=== PATIENT | female | born 1950 | race Caucasian/White ===

== ENCOUNTER 2023-05-07 15:24 | Emergency (ER) | payer OTHER, SELFPAY ==
[2023-05-07 15:26] VITALS: BP 174/77
[2023-05-07 15:51] LABS: % Basophils 0.7 % (0-2); % Eosinophils 0.9 % (0-6); % Immature Granulocytes 0.2 % (0-0.5); % Lymphocytes 30.8 % (20.5-51.1); % Monocytes 6.4 % (1.7-9.3); Absolute Basophils 0.1 10^3/uL (0-0.2); Absolute Eosinophils 0.1 10^3/uL (0-0.7); Absolute Lymphocytes 2.8 10^3/uL (1.2-3.4); Absolute Monocytes 0.6 10^3/uL (0.1-0.6); Absolute Neutrophils 5.6 10^3/uL (1.4-6.5); Hematocrit 39.2 % (37.0-47.0); Hemoglobin 13.4 g/dL (12.0-16.0); Mean Corp Hgb Conc. 34.2 g/dL (33.0-37.0); Mean Corpuscular Hgb 30.2 pg (27.0-31.0); Mean Corpuscular Volume 88.5 fL (81.0-99.0); Mean Platelet Volume 9.9 fL (7.4-10.4); Nucleated Red Blood Cells % 0 %; Platelet Count 226 10^3/uL (130-400); Red Blood Cell Count 4.43 10^6/uL (4.20-5.40); Red Cell Dist. Width 12.5 % (11.5-14.5); White Blood Cell Count 9.1 10^3/uL (4.8-10.8)
[2023-05-07 16:04] LABS: ALT (SGPT) 18 U/L (0-35); AST (SGOT) 23 U/L (14-36); Albumin 3.9 g/dl (3.5-5.0); Alkaline Phosphatase 91 U/L (38-126); Blood Urea Nitrogen 15 mg/dl (7-17); Calcium 10.4 mg/dl (8.4-10.2); Carbon Dioxide 27 mmol/L (22-30); Chloride 104 mmol/L (98-107); Glucose 82 mg/dl (70-99); Potassium 3.9 mmol/L (3.5-5.1); Sodium 138 mmol/L (135-145); Total Bilirubin 0.5 mg/dl (0.2-1.3); Total Protein 6.3 g/dl (6.3-8.2); eGFR > 60.00
[2023-05-07 16:12] LABS: Troponin I < 0.012 ng/ml
[2023-05-07 17:32] VITALS: BMI 25.9
[2023-05-07 17:35] VITALS: BP 173/56
[2023-05-07 18:00] VITALS: BP 163/61
[2023-05-07 18:55] VITALS: BP 178/66
[2023-05-07 20:00] VITALS: BP 193/71
[2023-05-07 20:01] LABS: Troponin I < 0.012 ng/ml
--- NOTE | 2023-05-07 20:31 | ED.GENMED ---
History of Present Illness
General
Chief Complaint: Heart Rate Problem
Source: patient
Exam Limitations: none
Time Seen by Provider: 05/07/23 18:04
Nursing documentation reviewed up to this point in time: agreed with
Travel History
Have you had any contact with someone who has COVID-19?: No
Do you have any symptoms of coronavirus? Fever > 100 degrees, chills, cough, shortness of breath, sore throat, loss of taste or smell, muscle aches, or headache?: No
History of Present Illness
History of Present Illness:
72-year-old female with past ministry of GERD, hyperlipidemia presenting to the emergency department today with concerns of palpitations started yesterday and it was ongoing this morning. Denies significant chest pain at initial assessment patient
without any significant symptoms at this time no fevers no recent illness no abdominal pain.
Review of Systems
Review of Systems
Allergies reviewed?: Yes
All Other Systems: ROS reviewed and negative except as documented in HPI and ROS
Phy Exam
Physical Exam
Physical Exam:
GENERAL: Alert , in no apparent distress
EYE: pupils equal and reactive
NECK: Supple, no significant adenopathy.
ENT: o/p clr, mmm.
CARDIAC: Regular rate and rhythm .
LUNGS: Clear breath sounds bilaterally, no acute respiratory distress, no wheezes/rales/rhonchi
ABDOMEN: Soft, without focal tenderness, no r/g, no cvat
NEUROLOGICAL: Alert and oriented, no focal neuro deficits
SKIN: Warm and dry, skin intact.
MUSCULOSKELETAL: No edema, well perfused.
PSYCH: Normal and appropriate interaction.
Course
Orders/Labs/Results
Orders:
Orders
05/07/23 15:28
EKG [Electrocardiogram (*1)] Urgent
Reason for Study: Palpitations
05/07/23 15:29
EKG- Treatment ONCE
05/07/23 15:43
Complete Blood Count/With Diff Urgent
Comprehensive Metabolic Panel Urgent
Troponin I Urgent
05/07/23 19:01
EKG [Electrocardiogram (*1)] Urgent
Reason for Study: Chest Pain
EKG- Treatment ONCE
05/07/23 19:02
Chest [CR Chest - 2 Views ] Urgent
Comment:
Reason For Exam: cp
05/07/23 19:23
Troponin I Urgent
Abnormal Lab Results
05/07/23
15:43
Calcium 10.4 H mg/dl
(8.4-10.2)
05/07/23 15:43
05/07/23 15:43
Vital Signs
Initial and Last Documented VS:
Initial Vital Signs
Temp Pulse Resp BP Pulse Ox
98.6 F 67 18 174/77 99
05/07/23 15:26 05/07/23 15:26 05/07/23 15:26 05/07/23 15:26 05/07/23 15:26
Last Documented Vital Signs
Temp Pulse Resp BP Pulse Ox
98.6 F 71 11 178/66 99
05/07/23 15:26 05/07/23 19:53 05/07/23 19:53 05/07/23 18:55 05/07/23 19:53
MDM/Problems Addressed
MDM/Problems Addressed:
72-year-old female presenting to the emergency department today with concerns of intermittent palpitations since yesterday. Upon arrival here blood pressure elevated otherwise vital signs are normal. Labs unremarkable troponin negative. EKG
normal chest x-ray normal. Patient repeated troponin level and EKG at 3 hours also normal. Blood pressure was elevated during ER stay in the 170s over 60s there was blood pressure 160 systolic as well. Concerning the elevated blood pressure was
advised for close follow-up as well as for the palpitations. Advised to see cardiology in the next few days to get reassessed she if she needs blood pressure medications or further assessment. Patient generally very well-appearing throughout ER
stay stable for outpatient management return precautions given.
*Critical Care Note
Total Time (30-74mins, 75-104mins- exclusive of procedures): Not Applicable
ED Attending Note
-
Portions of this chart may have been created with voice recognition software.� Occasional wrong word or��sound alike� substitutions may have occurred due to the inherent limitations of voice recognition software.
Discharge Plan
Departure
Patient Disposition: Home (Routine Discharge)
Date of Disposition: 05/07/23
Time of Disposition: 20:33
Patient with high blood pressure during this ER visit?: Yes
Covid-19: Not Applicable
Discharge Problem:
Heart palpitations, Elevated blood pressure reading
Instructions: Chest Pain CBC Follow Up, BLOOD PRESSURE
Referrals:
Seth White MD [Active] - Follow up in 5-7 days
Activity Restrictions/Additional Instructions:
You came to the emergency department today with concerns of palpitations and chest discomfort. Please follow closely with cardiology. Return to the emergency department for any worsening, new or concerning symptoms.
Interventions
Interventions:
*Risk Screen - Suicide Last Done: 05/07/23 15:26
*General Assessment Last Done: 05/07/23 15:26
*Neglect/Abuse Screening Last Done: 05/07/23 15:26
ED- Fall Risk Assessment Last Done: 05/07/23 17:39
*ED COVID-19 Vaccine History Last Done: 05/07/23 15:26
ED- Cardiac Assessment Last Done: 05/07/23 17:38
ED- Pulmonary Assessment Last Done: 05/07/23 17:38
== END 2023-05-07 21:08 | disposition home or self-care (01) ==
LOC: EMR 15:24
PROVIDERS: Emergency Medicine; Physician Assistant; EMERGENCY PHYSICIAN Student in an Organized Health Care Education/Training Program; FAMILY PHYSICIAN Internal Medicine
DX: R00.2 Palpitations (principal); R03.0 Elevated blood-pressure reading, without diagnosis of hypertension; K21.9 Gastro-esophageal reflux disease without esophagitis; E78.00 Pure hypercholesterolemia, unspecified
CPT/HCPCS: 99283; 71046; 80053; 84484; 85025; 93005

== ENCOUNTER → 2023-05-26 10:21 | Outpatient (REF) | payer OTHER, SELFPAY | LOC: DHCBC MAIN 10:21 | PROVIDERS: ATTENDING PHYSICIAN Internal Medicine Cardiovascular Disease; FAMILY PHYSICIAN Family Medicine | DX: R01.1 Cardiac murmur, unspecified (principal) | CPT/HCPCS: 93306 ==

== ENCOUNTER → 2023-06-02 09:38 | Outpatient (REF) | payer OTHER, SELFPAY | LOC: RCS 09:38 | PROVIDERS: ATTENDING PHYSICIAN Internal Medicine Cardiovascular Disease; FAMILY PHYSICIAN Family Medicine | DX: R00.2 Palpitations (principal) | CPT/HCPCS: 93225; 93226 ==

== ENCOUNTER → 2023-10-27 14:12 | Outpatient (REF) | payer SELFPAY | LOC: HWRAD 14:12 | PROVIDERS: ATTENDING PHYSICIAN Internal Medicine Cardiovascular Disease; FAMILY PHYSICIAN Internal Medicine | DX: E78.2 Mixed hyperlipidemia (principal); I70.0 Atherosclerosis of aorta; I10 Essential (primary) hypertension | CPT/HCPCS: 75571 ==

== ENCOUNTER → 2023-11-10 14:23 | Outpatient (REF) | payer OTHER, SELFPAY | LOC: HWRAD 14:23 | PROVIDERS: ATTENDING PHYSICIAN Family Medicine | DX: M25.562 Pain in left knee (principal) | CPT/HCPCS: 73564 ==

== ENCOUNTER → 2023-11-17 16:25 | Outpatient (REF) | payer OTHER, SELFPAY | LOC: HWRAD 16:25 | PROVIDERS: ATTENDING PHYSICIAN Nurse Practitioner Family | DX: M25.561 Pain in right knee (principal) | CPT/HCPCS: 73564 ==

== ENCOUNTER → 2024-04-22 09:49 | Outpatient (REF) | payer OTHER, SELFPAY | LOC: HWWDC 09:49 | PROVIDERS: ATTENDING PHYSICIAN Family Medicine | DX: Z12.31 Encounter for screening mammogram for malignant neoplasm of breast (principal) | CPT/HCPCS: 77063; 77067 ==

== ENCOUNTER → 2024-05-09 13:36 | Outpatient (REF) | payer OTHER, SELFPAY | LOC: HWRAD 13:36 | PROVIDERS: ATTENDING PHYSICIAN Family Medicine | DX: Z78.0 Asymptomatic menopausal state (principal) | CPT/HCPCS: 77080 ==

== ENCOUNTER 2024-06-17 15:21 | Emergency (ER) | payer OTHER, SELFPAY ==
[2024-06-17 15:33] VITALS: BP 134/82
[2024-06-17 18:18] LABS: % Basophils 0.3 % (0-2); % Eosinophils 0.5 % (0-6); % Immature Granulocytes 0.4 % (0-0.5); % Lymphocytes 16.3 % (20.5-51.1); % Monocytes 3.1 % (1.7-9.3); % Neutrophils 79.4 % (42.2-75.2); Absolute Eosinophils 0.1 10^3/uL (0-0.7); Absolute Lymphocytes 1.6 10^3/uL (1.2-3.4); Absolute Monocytes 0.3 10^3/uL (0.1-0.6); Absolute Neutrophils 7.9 10^3/uL (1.4-6.5); Hematocrit 43.7 % (37.0-47.0); Hemoglobin 14.5 g/dL (12.0-16.0); Mean Corp Hgb Conc. 33.2 g/dL (33.0-37.0); Mean Corpuscular Hgb 30.3 pg (27.0-31.0); Mean Corpuscular Volume 91.2 fL (81.0-99.0); Mean Platelet Volume 9.8 fL (7.4-10.4); Nucleated Red Blood Cells % 0 %; Platelet Count 208 10^3/uL (130-400); Red Blood Cell Count 4.79 10^6/uL (4.20-5.40); Red Cell Dist. Width 12.8 % (11.5-14.5)
[2024-06-17 18:30] LABS: ALT (SGPT) 28 U/L (0-35); AST (SGOT) 29 U/L (14-36); Albumin 4.5 g/dl (3.5-5.0); Alkaline Phosphatase 98 U/L (38-126); Blood Urea Nitrogen 15 mg/dl (7-17); Carbon Dioxide 29 mmol/L (22-30); Chloride 105 mmol/L (98-107); Glucose 109 mg/dl (70-99); Potassium 4.4 mmol/L (3.5-5.1); Sodium 141 mmol/L (135-145); Total Bilirubin 0.6 mg/dl (0.2-1.3); Total Protein 7.2 g/dl (6.3-8.2); eGFR > 60.00
[2024-06-17 18:41] LABS: Troponin I < 0.012 ng/ml
[2024-06-17 19:52] VITALS: BP 176/78
--- NOTE | 2024-06-17 20:03 | ED.GENMED ---
History of Present Illness
General
Chief Complaint: Blood Pressure Problem
Source: patient
Time Seen by Provider: 06/17/24 19:21
History of Present Illness
History of Present Illness:
73-year-old female with past medical history of hypertension, hyperlipidemia and GERD presenting to the ER via EMS after she was at home sitting on the couch looking at her phone when she became acutely vertiginous causing her to feel nauseous and
had 1 episode of nonbloody nonbilious emesis. Patient reports that when EMS got to her, her blood pressure was greater than 200 systolically but does not believe any medications were administered to her. Since she was in the waiting room patient
notes that her symptoms have fully resolved she just notes that she has a fear of getting the vertiginous symptom back. Patient notes there was no associated headache, visual disturbances, focal weakness or numbness, chest pain or shortness of
breath, abdominal pain, back or flank pain or any other concerns. Patient notes that she usually takes 50 mg of metoprolol at nighttime prior to bed, has yet to take the medication today. Patient normally follows with her primary care provider for
her blood pressure, notes that she normally does not usually check her blood pressure at home but states when she is seeing her doctor her blood pressure is usually around 130/80. Patient is without any other concerns at this time.
Past History
Past History
ED Past Medical History: GERD, HTN and Hypercholesterolemia
ED Past Surgical History: Gynecological
Social History
Tobacco: Non-smoker
Alcohol: None
Drug: None
Personal:
Living: alone
Review of Systems
Review of Systems
All Other Systems: ROS reviewed and negative except as documented in HPI and ROS
Phy Exam
Physical Exam
Physical Exam:
GENERAL: Alert , in no apparent distress
HEAD: Normocephalic atraumatic
EYE: pupils equal and reactive, pupils 3 mm bilateral, EOMI, no field cuts
NECK: Supple
ENT: o/p clr, mmm.
CARDIAC: Regular rate and rhythm, no murmur.
LUNGS: Clear breath sounds bilaterally, no acute respiratory distress, no wheezes/rales/rhonchi
NEUROLOGICAL: Alert and oriented, no focal neuro deficits, ambulatory with steady gait, no ataxia, no dysmetria, moves all extremities, no sensory deficit
SKIN: Warm and dry, skin intact.
MUSCULOSKELETAL: No edema, well perfused.
PSYCH: Normal and appropriate interaction.
Scores
Heart Failure Risk
Heart Failure Risk Score: Not Applicable
Heart Score for Chest Pain Patients
STEMI patient?: Not applicable
Withdrawal Assessment of Alcohol
Withdrawal Assessment Completed?: Not applicable
Course
Orders/Labs/Results
Orders:
Orders
06/17/24 15:23
ECG [Electrocardiogram (*1)] Urgent
Reason for Study: Hypertension, Benign
EKG- Treatment ONCE
06/17/24 15:34
CT Head W/o Iv Contrast Urgent
Comment:
Reason For Exam: dizziness
06/17/24 18:07
Comprehensive Metabolic Panel Urgent
06/17/24 18:08
Complete Blood Count/With Diff Urgent
Troponin I Urgent
Abnormal Lab Results
06/17/24 06/17/24
18:07 18:08
Absolute Neuts (auto) 7.9 H 10^3/uL
(1.4-6.5)
Neutrophils % 79.4 H %
(42.2-75.2)
Lymphocytes % 16.3 L %
(20.5-51.1)
Glucose 109 H mg/dl
(70-99)
Calcium 11.0 H mg/dl
(8.4-10.2)
06/17/24 18:08
06/17/24 18:07
Vital Signs
Initial and Last Documented VS:
Initial Vital Signs
Temp Pulse Resp BP Pulse Ox
98.5 F 64 18 134/82 99
06/17/24 15:33 06/17/24 15:33 06/17/24 15:33 06/17/24 15:33 06/17/24 15:33
Last Documented Vital Signs
Temp Pulse Resp BP Pulse Ox
98.5 F 70 18 176/78 98
06/17/24 15:33 06/17/24 19:52 06/17/24 19:52 06/17/24 19:52 06/17/24 19:52
MDM/Problems Addressed
Differential Diagnosis Includes:
BPPV, labyrinthitis, hypertensive urgency/emergency, CVA, cardiac dysrhythmia/arrhythmia
MDM/Problems Addressed:
73-year-old female presenting to the ER for evaluation of acute onset of vertigo earlier this afternoon, symptoms fully resolved by time of my exam. On arrival to the ER patient's blood pressure is now within normal limits around 134/82. She
ambulated with a steady gait, no evidence for ataxia. Labs were initiated on arrival and are reassuring outside of a slightly elevated calcium however do not suspect this to be the cause for patient's symptoms. Prior to discharge patient's repeat
blood pressure noted to be slightly elevated again around 170/70. Based off record review patient had similar presentation to this emergency department a little over 1 year ago with a blood pressure in the same range. Given this I do suspect
patient could have intermittently elevated blood pressure despite being compliant with her metoprolol. I did advise the patient that she check her blood pressure once in the morning and once in the evening and that if her blood pressure is greater
than 150 systolically she should take a second dose of her metoprolol until she follows up with her primary care provider. Patient expressed understanding was comfortable being discharged home.
Chronic conditions affecting care: HTN
Acute Exacerbation and/or Progression of Chronic Illness: HTN
*Radiology
Radiology exam reviewed: radiology read reviewed
*Pulse Oximetry
Patient hypoxic: no
*EKG
Heart Rate: 59
Rate: bradycardiac
Rhythm: sinus
[place]: normal axis
Ischemia: no ischemia
*Critical Care Note
Total Time (30-74mins, 75-104mins- exclusive of procedures): Not Applicable
Data Reviewed
Review of Other/Old Records Reveals: Records
Source: patient and records
Patient Management
Discussion with other providers: PCP
Escalation/DeEscalation of care consider admission/obs:
I notified patient's primary care provider of plan and primary will follow-up with the patient next week.
ED Attending Note
-
Portions of this chart may have been created with voice recognition software.� Occasional wrong word or��sound alike� substitutions may have occurred due to the inherent limitations of voice recognition software.
Discharge Plan
Departure
Patient Disposition: Home (Routine Discharge)
Date of Disposition: 06/17/24
Time of Disposition: 19:47
Patient with high blood pressure during this ER visit?: No
Discharge Problem:
Vertigo
Instructions: Vertigo (a type of dizziness)
Prescriptions:
New
meclizine 25 mg tablet
25 mg PO BID PRN (Reason: dizziness) Qty: 10 0RF
Interventions
Interventions:
*Risk Screen - Suicide Last Done: 06/17/24 15:33
*General Assessment Last Done: 06/17/24 15:33
*Neglect/Abuse Screening Last Done: 06/17/24 15:33
*ED- Fall Risk Assessment Last Done: 06/17/24 20:00
*ED COVID-19 Vaccine History Last Done: 06/17/24 15:33
*Nursing Disposition Last Done: 06/17/24 20:17
ED- Cardiac Assessment Last Done: 06/17/24 19:52
ED- Neurological Assessment Last Done: 06/17/24 19:52
ED- Pulmonary Assessment Last Done: 06/17/24 19:52
Discharge Date and Time
Discharge Date/Time: 06/17/24 20:19
Print Language: IRISH
== END 2024-06-17 20:19 | disposition home or self-care (01) ==
LOC: EMR 15:21
PROVIDERS: Emergency Medicine; EMERGENCY PHYSICIAN Emergency Medicine; FAMILY PHYSICIAN Internal Medicine
DX: R42 Dizziness and giddiness (principal); I10 Essential (primary) hypertension; E78.00 Pure hypercholesterolemia, unspecified; K21.9 Gastro-esophageal reflux disease without esophagitis
CPT/HCPCS: 99284; 70450; 80053; 84484; 85025; 93005

== ENCOUNTER → 2024-07-20 14:00 | Outpatient (REF) | payer OTHER, SELFPAY | LOC: DHSLP 14:00 | PROVIDERS: ATTENDING PHYSICIAN Internal Medicine Critical Care Medicine; FAMILY PHYSICIAN Family Medicine | DX: G47.19 Other hypersomnia (principal); R06.83 Snoring; F51.01 Primary insomnia | CPT/HCPCS: 95806 ==